=== PATIENT | male | born 1970 | race Caucasian/White ===

== ENCOUNTER 2016-09-10 09:20 | Outpatient (RCR) | payer OTHER | END 2016-09-10 14:45 | disposition home or self-care (01) | LOC: WOUNDCARE 09:20 | PROVIDERS: ATTEND Surgery | DX: E11.622 Type 2 diabetes mellitus with other skin ulcer (principal); L97.211 Non-pressure chronic ulcer of right calf limited to breakdown of skin | CPT/HCPCS: 99204 ==